=== PATIENT | female | born 1950 | race Two or more races ===

== ENCOUNTER 2020-02-21 09:45 | Inpatient (IN) | payer OTHER ==
[~2020-02-21] VITALS: Ht 152.4 cm; Wt 58.1 kg
[2020-02-21] MEDS ORDERED: LOTREL 5-10 MG1 CAP PO (14:26)
[2020-02-21] MEDS ORDERED: NEURONTIN300 MG PO (14:27)
[2020-02-21] MEDS ORDERED: RELAFEN PO (14:27)
[2020-02-25] MEDS ORDERED: NABUMETONE750 MG PO (08:17)
[2020-02-25] MEDS ORDERED: AMLODIPINE-BEN1 EACH PO (08:18)
[2020-02-27] MEDS ORDERED: OXYC1TAB9 PO (07:23)
[2020-02-27] MEDS ORDERED: XARELTO10 MG PO (07:23)
[2020-02-27] MEDS ORDERED: INTEGRA PLUS C1 EACH PO (07:23)
== END 2020-02-27 11:43 | DRG 470 ==
LOC: SURG 02-25 06:47 → O/R 02-25 06:47 → SURH 02-25 08:30 → O/R 02-25 09:45 → SURG 02-25 13:56
PROVIDERS: ADMIT Orthopaedic Surgery Sports Medicine; ATTEND Orthopaedic Surgery Sports Medicine
PROC: 0SRC0J9 Replacement of Right Knee Joint with Synthetic Substitute, Cemented, Open Approach (ICD-10-PCS; principal; 2020-02-25 08:30)
DX: M17.11 Unilateral primary osteoarthritis, right knee (principal); Z96.652 Presence of left artificial knee joint; I10 Essential (primary) hypertension

== ENCOUNTER → 2022-03-05 08:00 | Outpatient (CLI) | payer OTHER ==
[~2022-03-05] VITALS: Ht 152.4 cm; Wt 53.1 kg
[~2022-03-05 08:00] MED LIST: AMLODIPINE-BEN1 EACH PO; INTEGRA PLUS C1 EACH PO; LOTREL 5-10 MG1 CAP PO; NABUMETONE750 MG PO; NEURONTIN300 MG PO; OXYC1TAB9 PO; RELAFEN PO; XARELTO10 MG PO
== END | disposition home or self-care (01) ==
LOC: LAB 08:00 → EDSTATUS 03-08 08:08 → CIR.AMB 03-08 14:50 → EDSTATUS 03-08 14:51 → SURH 03-08 14:53
PROVIDERS: ATTEND Orthopaedic Surgery Sports Medicine
DX: Z20.828 Contact with and (suspected) exposure to other viral communicable diseases (principal)

== ENCOUNTER 2022-09-15 12:02 | Inpatient (IN) | payer OTHER ==
[~2022-09-15] VITALS: Ht 165.1 cm; Wt 53.1 kg
[2022-09-15] MEDS ORDERED: LOTREL 5-20 MG1 CAP PO (15:18)
[2022-09-21] MEDS ORDERED: AMLODIPINE-BEN1 EACH (14:58)
[2022-09-21] MEDS ORDERED: PANTOPRAZOLE SO40 MG (14:58)
[2022-09-22] MEDS ORDERED: INTEGRA PLUS C1 EACH PO (06:29)
[2022-09-22] MEDS ORDERED: DUI500 PO (06:29)
[2022-09-22] MEDS ORDERED: OXYC1TAB9 PO (06:29)
[2022-09-22] MEDS ORDERED: XARELTO10 MG PO (06:29)
== END 2022-09-22 12:58 | DRG 999 ==
LOC: SURH 09-20 09:54 → O/R 09-20 09:54 → SURH 09-20 10:15
PROVIDERS: ADMIT Orthopaedic Surgery Sports Medicine; ATTEND Orthopaedic Surgery Sports Medicine
PROC: 0SRD0J9 Replacement of Left Knee Joint with Synthetic Substitute, Cemented, Open Approach (ICD-10-PCS; principal; 2022-09-20 10:15)
DX: M17.12 Unilateral primary osteoarthritis, left knee (principal); I10 Essential (primary) hypertension